=== PATIENT | female | born 2000 | race Two or more races ===

== ENCOUNTER 2021-12-07 10:40 | Emergency (ER) | payer MEDICAID, OTHER ==
[~2021-12-07] VITALS: Ht 149.9 cm; Wt 54.4 kg
[2021-12-07] MEDS ORDERED: AZIT1POW PO (11:58)
[2021-12-07 12:08] VITALS: BP 116/78
== END 2021-12-07 12:18 | disposition home or self-care (01) ==
LOC: ER 10:40
DX: J01.90 Acute sinusitis, unspecified (principal); Z20.822 Contact with and (suspected) exposure to COVID-19
CPT/HCPCS: 36415; 87426

== ENCOUNTER 2022-02-17 04:29 | Emergency (ER) | payer MEDICAID ==
[~2022-02-17] VITALS: Ht 149.9 cm; Wt 56.8 kg
[~2022-02-17 04:29] MED LIST: AZIT1POW PO
[2022-02-17 04:31] VITALS: BP 125/81
[2022-02-17] MEDS ORDERED: HYDR-4902 PO (05:40)
[2022-02-17] MEDS ORDERED: ACE3T PO (10:22)
== END 2022-02-17 06:07 | disposition home or self-care (01) ==
LOC: ER 04:29
DX: K08.89 Other specified disorders of teeth and supporting structures (principal); F12.10 Cannabis abuse, uncomplicated; Z98.818 Other dental procedure status

== ENCOUNTER 2022-02-17 09:18 | Emergency (ER) | payer MEDICAID ==
[~2022-02-17] VITALS: Ht 149.9 cm; Wt 56.7 kg
[~2022-02-17 09:18] MED LIST changes: +HYDR-4902 PO
[2022-02-17 09:57] VITALS: BP 120/74
[2022-02-17] MEDS ORDERED: ACE3T PO (10:22)
== END 2022-02-17 10:32 | disposition home or self-care (01) ==
LOC: ER 09:18
DX: K08.89 Other specified disorders of teeth and supporting structures (principal); F12.10 Cannabis abuse, uncomplicated; Z76.0 Encounter for issue of repeat prescription
CPT/HCPCS: 81025